=== PATIENT | male | born 1940 | race Caucasian/White ===

== ENCOUNTER 2016-12-13 18:43 | Emergency (ER) | payer OTHER ==
--- NOTE | 2016-12-13 18:48 | PDOC ---
History of Present Illness - History of Present Illness Initial Comments: 12/13/16 20:16 Patient is a 76 year old male with significant medical hx of HTN who is presenting to the ED via EMS with complaint of high blood sugar. The patient states he's been monitoring his blood sugar and he measured it tonight after having dinner. The patient states that his sugar read at 256 which prompted him to call his PCP's office. The patient's PCP office was closed and he was prompted to come to the ED for further evaluation. Patient denies any history of diabetes. Denies increased thirst, headache, lightheadedness, nausea, vomiting, change in sensation, numbness, dizziness, chest pain, or change in appetite. Patient notes that his mother of diabetic complications. <Blessing James - Last Filed: 12/13/16 20:20> <Neftaly Tapia - Last Filed: 12/13/16 22:45> - General Stated Complaint: BLOOD SUGAR PROBLEM Time Seen by Provider: 12/13/16 18:47 Past History <Blessing James - Last Filed: 12/13/16 20:20> <Neftaly Tapia - Last Filed: 12/13/16 22:45> - Past Medical History Allergies/Adverse Reactions: Allergies Allergy/AdvReac Type Severity Reaction Status Date / Time No Known Allergies Allergy Verified 12/13/16 18:50 Home Medications: Ambulatory Orders Alprazolam [Alprazolam ER] 2 mg PO HS 12/13/16 Bupropion HCl [Bupropion HCl ER] 200 mg PO DAILY 12/13/16 Dutasteride/Tamsulosin HCl [Dutasteride-Tamsulosin 0.5-0.4] 1 each PO DAILY Lansoprazole [Prevacid] 30 mg PO DAILY 12/13/16 Lisinopril/Hydrochlorothiazide [Lisinopril-Hctz 20-12.5 mg Tab] 1 each PO DAILY 12/13/16 Review of Systems - Review of Systems Comments:: 12/13/16 20:18 GENERAL/CONSTITUTIONAL: No fever or chills. No weakness. HEAD, EYES, EARS, NOSE AND THROAT: No change in vision. No ear pain or discharge. No sore throat. CARDIOVASCULAR: No chest pain or shortness of breath. RESPIRATORY: No cough, wheezing, or hemoptysis. GASTROINTESTINAL: No nausea, vomiting, diarrhea or constipation. GENITOURINARY: No dysuria, frequency, or change in urination. MUSCULOSKELETAL: No joint or muscle swelling or pain. No neck or back pain. ENDOCRINE: High blood sugar. No increased thirst. No abnormal weight change. SKIN: No rash NEUROLOGIC: No headache, vertigo, loss of consciousness, or change in strength/ sensation. <Blessing James - Last Filed: 12/13/16 20:20> *Physical Exam - Vital Signs Last Vital Signs Temp Pulse Resp BP Pulse Ox 98.0 F 97 H 18 179/91 97 12/13/16 18:45 12/13/16 18:45 12/13/16 18:45 12/13/16 18:45 12/13/16 18:45 - Physical Exam Comments: 12/13/16 20:19 GENERAL: Awake, alert, and fully oriented, in no acute distress HEAD: No signs of trauma EYES: PERRLA, EOMI, sclera anicteric, conjunctiva clear ENT: Auricles normal inspection, hearing grossly normal, nares patent, oropharynx clear without exudates. Moist mucosa NECK: Normal ROM, supple, no lymphadenopathy, JVD, or masses LUNGS: Breath sounds equal, clear to auscultation bilaterally. No wheezes, and no crackles HEART: Regular rate and rhythm, normal S1 and S2, no murmurs, rubs or gallops ABDOMEN: Soft, nontender, normoactive bowel sounds. No guarding, no rebound. No masses EXTREMITIES: Normal range of motion, no edema. No clubbing or cyanosis. No cords, erythema, or tenderness NEUROLOGICAL: Cranial nerves II through XII grossly intact. Normal speech, normal gait SKIN: Warm, Dry, normal turgor, no rashes or lesions noted. HEMATOLOGIC/LYMPHATIC: No anemia, easy bleeding, or history of blood clots. ALLERGIC/IMMUNOLOGIC: No hives or skin allergy. <Blessing James - Last Filed: 12/13/16 20:20> ED Treatment Course - ADDITIONAL ORDERS Additional order review: Laboratory Results 12/13/16 18:56 POC Glucometer [id number] 12/13/16 18:56 POC Glucometer [id number] <Blessing James - Last Filed: 12/13/16 20:20> - LABORATORY CBC & Chemistry Diagram: 12/13/16 21:00 12/13/16 21:00 <Neftaly Tapia - Last Filed: 12/13/16 22:45> *DC/Admit/Observation/Transfer - Attestations Scribe Attestion: 12/13/16 20:19 Documentation prepared by Blessing James, acting as medical assistant cardiology for Neftaly Tapai MD. <Blessing James - Last Filed: 12/13/16 20:20> - Discharge Dispostion Admit: No - Attestations Physician Attestion: 12/13/16 18:48 I, Dr. Neftaly Tapia, attest that this document has been prepared under my direction and personally reviewed by me in its entirety. I further attest, that it accurately reflects all work, treatment, procedures and medical decision -making performed by me. <Neftaly Tapia - Last Filed: 12/13/16 22:45> Diagnosis at time of Disposition: Anxiety - Discharge Dispostion Disposition: HOME Condition at time of disposition: Good - Referrals Referrals: STAFF,NOT ON [Primary Care Provider] - - Patient Instructions Printed Discharge Instructions: DI for Anxiety -- Adult Additional Instructions: Follow up with your doctors.... return to us if any problems. Take all of your medications as prescribed. ONLY TAKE YOUR BLOOD SUGAR READING FIRST THING IN THE MORNING BEFORE YOU EAT. Best- Dr. Neftaly Tapia
[2016-12-13 18:59] VITALS: BP 179/91; PULSE 97; TEMP 98; BMI 31.9
[2016-12-13] MEDS ORDERED: ACETAMINOPHEN 325 MG TABLET (FP) PO ONE (20:57)
[2016-12-13] MEDS ORDERED: ACETAMINOPHEN 325 MG TABLET (FP) ONE (21:11)
[2016-12-13 21:16] LABS: BASOPHIL 0.3 % (0-2.0); EOSINOPHIL 1.1 % (0-4.5); MCH 30.6 pg (25.7-33.7); MCHC 34.3 g/dl (32.0-35.9); MEAN CELL VOLUME 89.4 fl (80-96); MEAN PLT VOLUME 8.6 fl (7.5-11.1); NEUTROPHILS 59.6 % (42.8-82.8); PLATELET COUNT 215 K/MM3 (134-434); RDW 13.1 % (11.9-15.9); WHITE BLOOD COUNT 5.3 K/mm3 (4.0-10.0)
[2016-12-13 21:20] LABS: URINE APPEARANCE CLEAR; URINE BILIRUBIN NEGATIVE (NEGATIVE); URINE BLOOD NEGATIVE (NEGATIVE); URINE COLOR LTYELLOW; URINE GLUCOSE (UA) 2+ (NEGATIVE); URINE KETONE NEGATIVE (NEGATIVE); URINE LEUK ESTERASE NEGATIVE (NEGATIVE); URINE NITRITE NEGATIVE (NEGATIVE); URINE PROTEIN NEGATIVE (NEGATIVE); URINE UROBILINOGEN NEGATIVE mg/dL (0.2-1.0)
[2016-12-13 21:31] LABS: ACTIVATED PTT 28.6 SECONDS (26.9-34.4)
[2016-12-13 21:32] LABS: INR 0.95 (0.82-1.09); PROTHROMBIN TIME (PATIENT) 10.4 SEC (9.98-11.88)
[2016-12-13 21:43] LABS: ALBUMIN 3.4 g/dl (3.4-5.0); ANION GAP 8 (8-16); BILIRUBIN,TOTAL 0.1 mg/dL (0.2-1.0); CALCIUM 8.5 mg/dL (8.5-10.1); CO2 26 mmol/L (21-32); CREATININE 1.2 mg/dL (0.7-1.3); GLUCOSE,RANDOM 162 mg/dL (74-106); SGOT/AST 14 U/L (15-37); SGPT/ALT 22 U/L (12-78)
[2016-12-13 21:45] LABS: ALK PHOS 66 U/L (45-117); TROPONIN I < 0.02 ng/ml (0.00-0.05)
--- NOTE | 2016-12-14 09:20 | EKG ---
Test Reason : Blood Pressure : / mmHG Vent. Rate : 082 BPM Atrial Rate : 082 BPM P-R Int : 142 ms QRS Dur : 082 ms QT Int : 370 ms P-R-T Axes : 022 -10 003 degrees QTc Int : 432 ms NORMAL SINUS RHYTHM POOR R WAVE PROGRESSION NO PREVIOUS ECGS AVAILABLE Confirmed by LEA RODRIGES MD ([id number]) on 12/14/2016 9:20:25 AM Referred By: Confirmed By:LEA RODRIGES MD
== END 2016-12-13 23:01 | disposition home or self-care (01) ==
LOC: JER 18:43
DX: R73.9 Hyperglycemia, unspecified (principal); F41.9 Anxiety disorder, unspecified; I10 Essential (primary) hypertension
CPT/HCPCS: 36415; 71010-TC; 80053; 81003; 82550; 84484; 85025; 85610; 85730; 93005; 93010; 99283-25